=== PATIENT | male | born 1975 | race American Indian/Alaskan Native ===

== ENCOUNTER 2017-12-17 22:22 | Emergency (ER) | payer SELFPAY ==
[2017-12-17 22:52] VITALS: BP 107/62
--- NOTE | 2017-12-18 01:18 | Emergency Department Report ---
ED Laceration HPI - HPI Chief Complaint: Laceration/Recheck/Suture Stated Complaint: WRIST LAC Time Seen by Provider: 12/18/17 00:46 Occurred When: Today Severity: mild Tetanus Status: Up to Date Laceration Symptoms: Yes Pain, No Foreign Body Sensation, No Numbness, No Weakness Other History: 42-year-old -[place] male comes in actively cutting his right wrist when you open can while grilling tonight. Patient is able to move all fingers no active bleeding dressing in place. ED Review of Systems ROS: Stated complaint: WRIST LAC Other details as noted in HPI Comment: All other systems reviewed and negative Skin: other (2 right wrist) ED Past Medical Hx - Past Medical History Previous Medical History?: Yes Hx Hypertension: Yes Hx GERD: Yes - Surgical History Past Surgical History?: No - Social History Smoking Status: Current Every Day Smoker - Medications Home Medications: Home Medications Medication Instructions Recorded Confirmed Last Taken Type HYDROcodone/APAP 10-325 [[place] 1 each PO Q6HR PRN #20 tablet 04/15/15 Unknown Rx 10/325] diazePAM TAB [Valium] 5 mg PO Q8H PRN #21 tab 04/15/15 Unknown Rx Laceration Physical Exam - Exam General: Vital signs noted. No distress. Alert and acting appropriately. Wound Length (cm): 2 (right wrist plantar) Laceration Location: Upper Extremity (right wrist) Laceration Exam: Yes Normal Distal CMS, No Foreign Body, No Exposed Tendon, Vessel, or Nerve, No Tendon Injury ED Course Vital Signs 12/17/17 22:47 Temperature 98.4 F Pulse Rate 88 Respiratory 16 Rate Blood Pressure 107/62 O2 Sat by Pulse 99 Oximetry - Laceration /Wound Repair Right Wrist Wound Location: upper extremity (right wrist) Wound Length (cm): 2 Wound's Depth, Shape: superficial Wound Explored: no foreign body removed Irrigated w/ Saline (ccs): 30 Betadine Prep?: Yes Wound Repaired With: Dermabond Sterile Dressing Applied?: Yes Progress: Patient tolerated procedure well ED Medical Decision Making - Medical Decision Making Patient has been evaluated by this provider in fast track. Patient has a superficial laceration to the plantar right wrist. Laceration repair by Dermabond. Discussed the patient to keep area clean and dry. Critical care attestation.: If time is entered above; I have spent that time in minutes in the direct care of this critically ill patient, excluding procedure time. ED Disposition Clinical Impression: Laceration of right wrist Qualifiers: Encounter type: initial encounter Qualified Code(s): S61.511A - Laceration without foreign body of right wrist, initial encounter Disposition: TO HOME OR SELFCARE Is pt being admited?: No Does the pt Need Aspirin: No Condition: Stable Instructions: Laceration (ED), Skin Adhesive Care (ED) Additional Instructions: Keep wound clean and dry. Return back to the emergency room if there is any signs of infection such as fever swelling, redness or purulent discharge. Referrals: PRIMARY CARE, [Primary Care Provider] - 3-5 Days Forms: Work/School Release Form(ED), Accompanied Note
== END 2017-12-18 01:15 | disposition home or self-care (01) ==
LOC: ED 22:22
DX: S61.511A Laceration without foreign body of right wrist, initial encounter (principal); I10 Essential (primary) hypertension; K21.9 Gastro-esophageal reflux disease without esophagitis; F17.200 Nicotine dependence, unspecified, uncomplicated; Z91.040 Latex allergy status; Z91.018 Allergy to other foods; W26.9XXA Contact with unspecified sharp object(s), initial encounter; Y93.89 Activity, other specified; Y92.89 Other specified places as the place of occurrence of the external cause; Y99.8 Other external cause status
CPT/HCPCS: 99282

== ENCOUNTER 2019-11-13 21:03 | Emergency (ER) | payer SELFPAY ==
[2019-11-13 21:35] VITALS: BP 136/93
--- NOTE | 2019-11-13 21:44 | Emergency Department Report ---
Chief Complaint: Upper Respiratory Infection Stated Complaint: COLD - HPI History of Present Illness: 44-year-old -[place] male presents to the emergency room for cold/flulike symptoms. Patient states he has been weak. Patient states that he has sweats and chills fever. Today he states he feels much better. Patient states he has a tickle in the back of his throat because of the cough. 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 - Exam Vital Signs: Vital Signs 11/13/19 21:33 Temperature 99.9 F H Pulse Rate 105 H Respiratory 20 Rate Blood Pressure 136/93 O2 Sat by Pulse 100 Oximetry Physical Exam: Gen: alert oriented NAD Cardic: regular rate and rhythm no murmurs appreciated Resp: Clear to auscultation bilateral no wheezing no rales or rhonchi. Abdomen: Soft nontender nondistended normal bowel sounds. Patient is ambulatory without difficulties MSE screening note: Focused history and physical exam performed. Due to findings the following was ordered: 44-year-old -[place] male presents to the emergency room for cold/flulike symptoms. Patient states he has been weak. Patient states that he has sweats and chills fever. Today he states he feels much better. Patient states he has a tickle in the back of his throat because of the cough. 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 Recommend taking Tylenol or ibuprofen for fever and body aches. COVID testing. ED Disposition for MSE Disposition: Z-07 MED SCREENING EXAM-LEFT Is pt being admited?: No Does the pt Need Aspirin: No Condition: Stable Additional Instructions: Recommend Tylenol or ibuprofen for fever and chills. Covid-19 testing referral to [facility]. Return back to the emergency room if worsening weakness shortness of breath chest pain. Referrals: VINCENT CASTRO MD [Staff Physician] - 3-5 Days Forms: Work/School Release Form(ED)
== END 2019-11-13 22:00 | disposition left against medical advice (07) ==
LOC: ED 21:03
DX: J00 Acute nasopharyngitis [common cold] (principal); R50.9 Fever, unspecified; R53.1 Weakness; Z53.21 Procedure and treatment not carried out due to patient leaving prior to being seen by health care provider